=== PATIENT | male | born 1980 | race Caucasian/White ===

== ENCOUNTER 2016-03-10 11:29 | Emergency (ER) | payer OTHER ==
[~2016-03-10] VITALS: Ht 167.6 cm; Wt 68.0 kg
[~2016-03-10 11:29] MED LIST: NAPROSYN500 M1 PO
--- NOTE | 2016-03-10 11:52 | ED CARDIAC/CP/PALPITATIONS ---
History of Present Illness General Chief Complaint: Chest Pain Stated Complaint: CP W/PALP Source: patient, old records Exam Limitations: no limitations Vital Signs & Intake/Output Vital Signs & Intake/Output Vital Signs Date Time Temp Pulse Resp B/P Pulse O2 O2 Flow FiO2 Ox Delivery Rate 03/10 1401 98.1 88 20 128/82 97 Room Air ED Intake and Output 03/11 0000 03/10 1200 Intake Total 0 Output Total Balance 0 Intake, Oral 0 Patient 150 lb Weight Allergies Coded Allergies: venom-honey bee (Severe, SWELLING 02/15/16) Reconcile Medications Hydroxyzine Pamoate (Vistaril) 50 MG CAPSULE 1 CAP PO Q8 PRN anxiety Naproxen (Naprosyn) 500 MG TABLET 1 TAB PO BID PRN pain Triage Note: PT TO ED C/O PALPITATIONS SINCE LAST NIGHT. PT SEEN IN ED X 2 FOR THE SAME. HAS APPT WITH CARDIOILOGY ON 03/20. STATES HE STARTED WITH PALPITATIONS LAST NIGHT. DENIES ANY PAIN. EKG DONE. Triage Nurses Notes Reviewed? yes HPI: patient is a 35-year-old male presents complaining of episodes of chest tightness and chest pounding sensation. Patient reports that episodes of been occurring almost daily for the past one month. Episodes last approximately 20 minutes to one hour with no exacerbating or alleviating factors, reports tightness radiating to the left jaw and left upper extremity and then symptoms resolved. Patient has associated anxiety during these episodes. Patient has been seen in the emergency department twice previously over the past 1 month with similar symptoms. Patient has an appointment with a sander operator on March 20. Last episode was at 11 AM this morning. Patient has been taking naproxen with minimal improvement. Patient reports he last used cocaine a couple of weeks ago. (SHELDON ORDOÑEZ) Past History Travel History Traveled to [place] past 21 day No Medical History Any Pertinent Medical History? none Neurological: NONE EENT: NONE Cardiovascular: NONE Respiratory: NONE Gastrointestinal: NONE Hepatic: NONE Renal: NONE Musculoskeletal: NONE Psychiatric: NONE Endocrine: NONE Blood Disorders: NONE Cancer(s): NONE Surgical History Surgical History: non-contributory Psychosocial History What is your primary language Kyrgyz Tobacco Use: Never used ETOH Use: denies use Illicit Drug Use: cocaine (no use x 2-3 weeks) Family History Hx Contributory? Yes (father?) (SHELDON ORDOÑEZ) Review of Systems Review of Systems Constitutional: Denies: chills, fever. EENTM: Reports: no symptoms. Respiratory: Reports: short of breath (with the episodes none current). Cardiovascular: Reports: see HPI. GI: Denies: abdominal pain, nausea, vomiting. Genitourinary: Reports: no symptoms. Musculoskeletal: Reports: back pain (none currently). Skin: Reports: no symptoms. Neurological/Psychological: Reports: anxiety. Hematologic/Endocrine: Reports: no symptoms. Immunologic/Allergic: Reports: no symptoms. (SHELDON ORDOÑEZ) Physical Exam Physical Exam General Appearance: well developed/nourished, alert, awake Head: atraumatic, normal appearance Eyes: Bilateral: normal appearance, PERRL, EOMI. Ears, Nose, Throat: normal pharynx, normal ENT inspection, hearing grossly normal Neck: normal inspection, supple, full range of motion, no appreciable carotid bruit Respiratory: normal breath sounds, chest non-tender, no respiratory distress, lungs clear Cardiovascular: regular rate/rhythm, normal peripheral pulses Peripheral Pulses: 2+ radial (R), 2+ radial (L) Gastrointestinal: soft, non-tender Extremities: normal inspection, normal capillary refill, normal range of motion, no edema Neurologic/Psych: no motor/sensory deficits, awake, alert, oriented x 3, normal gait, normal mood/affect Skin: intact, normal color, warm/dry Lymphatic: no anterior cervical wyatt Core Measures ACS in differential dx? Yes ASA ordered for poss ACS? No-ACS ruled out Severe Sepsis Present: No Septic Shock Present: No (SHELDON ORDOÑEZ) Progress Differential Diagnosis: AMI, aortic dissection, atrial fibrillation, costochondritis, hyperkalemia, hypovolemia, hyperthyroid, hyperventilation, musculoskeletal pain, myocarditis, pericarditis, pneumothorax, PSVT, pulmonary embolism, PVCs/PACs, unstable angina, V-fib/V-Tach, WPW syndrome, Prinzmetal angina, polysubstance abuse, anxiety Initial ED EKG: normal intervals, normal p-waves, normal QRS complex, normal sinus rhythm, no ST T wave changes Prior EKG: unchanged Rhythm Strip: normal sinus rhythm (SHELDON ORDOÑEZ) Plan of Care: Orders Procedure Date/time Status Telemetry/Data Analytics Chief Scientist 03/10 1147 Active URINE DRUG SCREEN FOR ER ONLY 03/10 1147 Complete TSH REFLEX 03/10 1147 Complete TROPONIN LEVEL 03/10 1147 Complete MAGNESIUM 03/10 1147 Complete COMPREHENSIVE METABOLIC PANEL 03/10 1147 Complete CBC WITHOUT DIFFERENTIAL 03/10 1147 Complete EKG 03/10 1131 Active Laboratory Tests 03/10/16 1320: Urine Opiates Screen < 100.00, Methadone Screen < 40, Barbiturate Screen < 60, Ur Phencyclidine Scrn < 6.00, Amphetamines Screen < 100, U Benzodiazepines Scrn < 85, Urine Cocaine Screen < 50, Urine Cannabis Screen < 5.00 03/10/16 1154: Anion Gap 14, Estimated GFR > 60, BUN/Creatinine Ratio 27.5 H, Glucose 96, Calcium 9.5, Magnesium 1.8, Total Bilirubin 0.8, AST 15 L, ALT 33, Alkaline Phosphatase 46, Troponin I < 0.01, Total Protein 7.0, Albumin 4.4, Globulin 2.6, Albumin/Globulin Ratio 1.7, TSH &T3 &Free T4 Intrp 2.820, CBC w Diff NO MAN DIFF REQ, RBC 5.04, MCV 88.0, MCH 29.7, RDW 12.9, MPV 9.5, Gran % 51.2, Lymphocytes % 31.8, Monocytes % 14.2 H, Eosinophils % 2.2, Basophils % 0.6, Absolute Granulocytes 2.0, Absolute Lymphocytes 1.2, Absolute Monocytes 0.6, Absolute Eosinophils 0.1, Absolute Basophils 0, PUBS MCHC 33.8 03/10/2016 2:03:02 PM: No arrhythmias or ectopy on cardiac sonographer throughout emergency department stay. Previous records reviewed. Patient had a D dimer test on February 24 while having similar episodes that was negative. Further labs and imaging deferred secondary to patient's presentation and his previous emergency department evaluations. Patient appears stable for follow-up with sander operator. Results of evaluation discussed with patient. (VALERIE DOTSON,SHELDON) Departure Departure Time of Disposition: 1358 Disposition: HOME OR SELF CARE Condition: Stable Clinical Impression Primary Impression: Heart palpitations Secondary Impressions: Chest pain Referrals: PATIENT HAS NO PRIMARY CARE DR (PCP/Family) DEBBIE FRANZ,Ren JOSEPH Additional Instructions: Follow up with Dr. Adams on 03/20/16 as scheduled. Call tomorrow morning to try to get an earlier appointment. Return to the ER if worsening of symptoms. Departure Forms: Customer Survey General Discharge Information Prescriptions: Current Visit Scripts Hydroxyzine Pamoate (Vistaril) 1 CAP PO Q8 PRN anxiety #15 CAP (SHELDON ORDOÑEZ) PA/TOBACCO GROWER Co-Sign Statement Statement: ED Attending supervision documentation- [] I saw and evaluated the patient. I have also reviewed all the pertinent lab results and diagnostic results. I agree with the findings and the plan of care as documented in the PA's/TOBACCO GROWER's documentation. [X] I have reviewed the ED Record and agree with the PA's/TOBACCO GROWER's documentation. [] Additions or exceptions (if any) to the PAs/TOBACCO GROWER's note and plan are summarized below: [] (GOOD FRANZ,SAUL) Critical Care Note Critical Care Note Critical Care Time: non-applicable (SHELDON ORDOÑEZ)
[2016-03-10 12:20] LABS: ABSOLUTE BASOPHIL COUNT 0 /CUMM (0.0-0.2); ABSOLUTE EOSINOPHIL COUNT 0.1 /CUMM (0.0-0.7); ABSOLUTE LYMPH COUNT 1.2 /CUMM (1.2-3.4); ABSOLUTE MONOCYTE COUNT 0.6 /CUMM (0.10-0.60); BASOPHIL % 0.6 % (0.0-2.0); EOSINOPHIL % 2.2 % (0-5); GRANULOCYTE % 51.2 % (42.2-75.2); HEMATOCRIT 44.3 % (42-52); MEAN CORPUSCULAR HGB 29.7 PG (27.0-31.0); MEAN CORPUSCULAR HGB CONC 33.8 G/DL (33.0-37.0); MEAN PLATELET VOLUME 9.5 FL (7.4-10.4); PLATELET COUNT 196 /CUMM (130-400); RBC DISTRIBUTION WIDTH 12.9 % (11.5-14.5); RED BLOOD CELL CT 5.04 /CUMM (4.70-6.10); WHITE BLOOD CELL COUNT 3.9 /CUMM (4.8-10.8)
[2016-03-10] MEDS ORDERED: VISTARIL50 M1 PO (14:00)
[2016-03-10 14:01] VITALS: BP 128/82
== END 2016-03-10 14:02 ==
LOC: ERH 11:29
PROVIDERS: Physician Assistant
DX: R00.2 Palpitations (principal); R07.9 Chest pain, unspecified; F14.10 Cocaine abuse, uncomplicated
CPT/HCPCS: 80307; 93005; 93010